=== PATIENT | female | born 1965 | race Caucasian/White ===

== ENCOUNTER 2017-05-07 06:33 | Emergency (ER) | payer MEDICARE, MEDICAID ==
[2017-05-07 06:43] VITALS: BP 125/70
--- NOTE | 2017-05-07 07:02 | EDM.PDOC ---
ED HPI GENERAL MEDICAL PROBLEM - General Chief Complaint: General Stated Complaint: Fall with pain pain to neck/back Time Seen by Provider: 05/07/17 06:35 Source of Information: Reports: Patient, EMS, Jail Records History Limitations: Reports: No Limitations - History of Present Illness INITIAL COMMENTS - FREE TEXT/NARRATIVE: 51 YO WF presents to ER by EMS from [place] after fall this am. Pt states she has poor eyesight and was walking back from the bathroom and fell. Pt unsure if she tripped/slipped and unsure if she lost consciousness. Pt complaining of posterior head pain and neck pain as well as low back pain. Pt currently in NAd and alert and oriented x 3. Pt denies any recent illness, denies chest pain or shortness of breath. Onset: Today Duration: Hour(s): (1) Location: Reports: Head, Neck, Back Quality: Reports: Ache Severity: Mild Improves with: Reports: None Worsens with: Reports: None Associated Symptoms: Reports: No Other Symptoms. Denies: Chest Pain, Cough, Diaphoresis, Nausea/Vomiting, Seizure, Shortness of Breath - Related Data Allergies Allergy/AdvReac Type Severity Reaction Status Date / Time carbamazepine [From Tegretol] Allergy Cannot Verified 05/07/17 07:01 Remember penicillin Allergy Rash Verified 05/07/17 07:01 Home Meds: Home Meds Acetaminophen 650 mg PO Q6H PRN 09/24/14 [History] Aspirin [Halfprin] 81 mg PO BRK 09/24/14 [History] Cholecalciferol (Vitamin D3) [Vitamin D] 2,000 unit PO DAILY 09/24/14 [History] Omeprazole [Omeprazole] 20 mg PO ACBREAKFAST 09/24/14 [History] cloZAPine [Clozapine] 500 mg PO BEDTIME 09/24/14 [History] clonazePAM [Clonazepam] 1 mg PO DAILY 09/24/14 [History] Albuterol/Ipratropium [DuoNeb 3.0-0.5 MG/3 ML] 3 ml INH Q6H PRN 05/07/17 [ History] Benztropine [Cogentin] 1 mg PO BID 05/07/17 [History] Bisacodyl [Biscolax] 1 supp RECTAL DAILY PRN 05/07/17 [History] ClonazePAM [KlonoPIN] 2 mg PO BEDTIME 05/07/17 [History] Divalproex Sodium [Depakote Sprinkle] 1,500 mg PO BEDTIME 05/07/17 [History] Iron Polysaccharides Complex [Ferrex 150] 150 cap PO DAILY 05/07/17 [History] Lurasidone HCl [Latuda] 120 mg PO BEDTIME 05/07/17 [History] Magnesium Hydroxide [Milk of Magnesia] 30 ml PO DAILY PRN 05/07/17 [History] Magnesium Oxide [Magnesium] 400 mg PO DAILY@1200 05/07/17 [History] Non-Formulary Medication [NF Drug] 1 cap PO DAILY 05/07/17 [History] Polyethylene Glycol 3350 [MiraLAX] 1 pkt PO ASDIRECTED 05/07/17 [History] Prazosin [Minpress] 2 mg PO BEDTIME 05/07/17 [History] Sennosides [Senna] 8.6 mg PO DAILY 05/07/17 [History] cloZAPine 250 mg PO DAILY 05/07/17 [History] traMADol [Ultram] 50 mg PO Q6H PRN #15 tab 05/07/17 [Rx] Past Medical History Other Genitourinary History: renal failure Other OB/BYN History: Ca in situ - ovarian - Past Surgical History Other Musculoskeletal Surgeries/Procedures:: knee repl bilat. fx ankle Social & Family History - Tobacco Use Smoking Status *Q: Former Smoker Second Hand Smoke Exposure: No - Recreational Drug Use Recreational Drug Use: No ED ROS GENERAL - Review of Systems Review Of Systems: See Below Constitutional: Reports: No Symptoms HEENT: Reports: No Symptoms Respiratory: Reports: No Symptoms Cardiovascular: Reports: No Symptoms Endocrine: Reports: No Symptoms GI/Abdominal: Reports: No Symptoms : Reports: No Symptoms Musculoskeletal: Reports: Neck Pain, Back Pain Skin: Reports: No Symptoms Neurological: Reports: Headache Psychiatric: Reports: No Symptoms Hematologic/Lymphatic: Reports: No Symptoms Immunologic: Reports: No Symptoms ED EXAM, GENERAL - Physical Exam Exam: See Below Exam Limited By: No Limitations General Appearance: Alert, WD/WN, No Apparent Distress Eye Exam: Bilateral Eye: EOMI, PERRL Ears: Normal External Exam, Normal Canal, Hearing Grossly Normal, Normal TMs Head: Atraumatic, Normocephalic Neck: Supple, Tender Lateral Respiratory/Chest: No Respiratory Distress, Lungs Clear, Normal Breath Sounds, No Accessory Muscle Use, Chest Non-Tender Cardiovascular: Normal Peripheral Pulses, Regular Rate, Rhythm, No Edema, No Gallop, No JVD, No Murmur, No Rub GI/Abdominal: Normal Bowel Sounds, Soft, Non-Tender, No Organomegaly, No Distention, No Abnormal Bruit, No Mass Back Exam: Paraspinal Tenderness Extremities: Normal Inspection, Normal Range of Motion, Non-Tender, Normal Capillary Refill, No Pedal Edema Neurological: Alert, Oriented, CN II-XII Intact, Normal Cognition, Normal Gait, Normal Reflexes, No Motor/Sensory Deficits Psychiatric: Normal Affect, Normal Mood Skin Exam: Warm, Dry, Intact, Normal Color, No Rash Lymphatic: No Adenopathy EKG INTERPRETATION EKG Date: 05/07/17 Time: 07:06 Rhythm: NSR Rate (Beats/Min): 83 [place]: Normal P-Wave: Present QRS: Normal ST-T: Normal QT: Normal Comparison: NA - No Prior EKG Course - Vital Signs Last Recorded V/S: Last Vital Signs Temp 35.8 C 05/07/17 06:41 Pulse 87 05/07/17 06:41 Resp 18 05/07/17 06:41 BP 125/70 05/07/17 06:41 Pulse Ox 99 05/07/17 06:41 - Orders/Labs/Meds Orders: Active Orders 24 hr Category Date Time Status EKG Documentation Completion [RC] ASDIRECTED Care 05/07/17 06:48 Active Abdomen Pelvis wo Cont [CT] Stat Exams 05/07/17 08:44 Taken Cervical Spine wo Cont [CT] Stat Exams 05/07/17 06:47 Taken Chest 1V Frontal [CR] Stat Exams 05/07/17 06:47 Taken Head wo Cont [CT] Stat Exams 05/07/17 06:47 Taken Lumbar Spine 2 or 3V [CR] Stat Exams 05/07/17 06:47 Taken EKG 12 Lead [EK] Routine Ther 05/07/17 06:47 Ordered Labs: Laboratory Tests 05/07/17 05/07/17 05/07/17 Range/Units 07:00 07:00 07:52 WBC 6.1 (5.0-10.0) 10^3/uL RBC 4.41 (3.80-5.50) 10^6/uL Hgb 14.1 (12.0-16.0) g/dL Hct 43.4 (37.0-47.0) % MCV 98.5 H (82.0-92.0) fL MCH 32.0 H (27.0-31.0) pg MCHC 32.5 (32.0-36.0) g/dL RDW 14.4 (11.5-14.5) % Plt Count 186 (150-300) 10^3/uL MPV 9.4 (7.4-10.4) fL Neut % (Auto) 61.8 (50.0-70.0) % Lymph % (Auto) 21.7 (20.0-40.0) % Esmeralda % (Auto) 12.3 H (2.0-8.0) % Eos % (Auto) 2.3 (1.0-3.0) % Baso % (Auto) 1.9 H (0.0-1.0) % Neut # (Auto) 3.8 (2.5-7.0) 10^3/uL Lymph # (Auto) 1.3 (1.0-4.0) 10^3/uL Esmeralda # (Auto) 0.8 (0.1-0.8) 10^3/uL Eos # (Auto) 0.1 (0.1-0.3) 10^3/uL Baso # (Auto) 0.1 (0.0-0.1) 10^3/uL Sodium 149 H (136-145) mmol/L Potassium 4.2 (3.3-5.3) mmol/L Chloride 111 (98-115) mmol/L Carbon Dioxide 28.8 (21.0-32.0) mmol/L BUN 14 (6-25) mg/dL Creatinine 0.93 (0.51-1.17) mg/dL Est Cr Clr Drug Dosing 78.19 mL/min Estimated GFR (MDRD) > 60 mL/min Glucose 100 (70-110) mg/dL Calcium 9.0 (8.7-10.3) mg/dL Total Bilirubin 0.3 (0.2-1.0) mg/dL AST 19 (15-37) U/L ALT 18 (12-78) U/L Alkaline Phosphatase 91 (46-116) IU/L Creatine Kinase 47 (26-276) U/L CK-MB (CK-2) < 0.50 (0.00-4.30) ng/mL Troponin I < 0.04 (0.00-0.070) ng/mL Total Protein 6.9 (6.4-8.2) g/dL Albumin 2.82 L (3.00-4.80) g/dL Specimen Type Urincath Urine Color Yellow (YELLOW) Urine Appearance Slightly cloudy H (CLEAR) Urine pH >= 9.0 (5.0-9.0) Ur Specific Newell 1.015 (1.005-1.030) Urine Protein Negative (NEGATIVE) mg/dL Urine Glucose (UA) Negative (NEGATIVE) mg/dL Urine Ketones Trace H (NEGATIVE) mg/dL Urine Occult Blood Moderate H (NEGATIVE) Urine Nitrite Negative (NEGATIVE) Urine Bilirubin Negative (NEGATIVE) Urine Urobilinogen 0.2 (0.2-1.0) E.U./dL Ur Leukocyte Esterase Trace H (NEGATIVE) Urine RBC Not Reportable Urine WBC Not Reportable Urinalysis Comment See note Meds: Medications Discontinued Medications Generic Name Dose Route Start Last Admin Trade Name Freq PRN Reason Stop Dose Admin Morphine Sulfate 2 mg 05/07/17 08:44 05/07/17 08:49 Morphine IVPUSH 05/07/17 08:45 2 mg ONETIME ONE Administration - Radiology Interpretation Free Text/Narrative:: CT cervical- NAd CT Head- NAD CXR- NAD CT abd/pelvis- Possible Paget's Dz Departure - Departure Time of Disposition: 10:15 Disposition: DC/Tfer to SNF 03 Condition: Fair Clinical Impression: Head contusion Qualifiers: Encounter type: initial encounter Contusion of head detail: other part of head Qualified Code(s): S00.83XA - Contusion of other part of head, initial encounter Cervical strain, acute Qualifiers: Encounter type: initial encounter Qualified Code(s): S16.1XXA - Strain of muscle, fascia and tendon at neck level, initial encounter Lumbar strain Qualifiers: Encounter type: initial encounter Qualified Code(s): S39.012A - Strain of muscle, fascia and tendon of lower back, initial encounter - Discharge Information Prescriptions: traMADol [Ultram] 50 mg PO Q6H PRN #15 tab PRN Reason: Pain Instructions: Contusion, Back Pain, Adult, Cervical Sprain, [id number] Referrals: Natividad Granados MD [Primary Care Provider] - Forms: ED Department Discharge Additional Instructions: 1. discharge to alf 2. ultram 50mg PO Q6 PRN for pain 3. consider PT eval and treat 4. follow up with PCP for further evaluation and treatment 5. return to ER for worsening symptoms - My Orders Last 24 Hours: My Active Orders 05/07/17 06:47 Cervical Spine wo Cont [CT] Stat Chest 1V Frontal [CR] Stat Head wo Cont [CT] Stat Lumbar Spine 2 or 3V [CR] Stat EKG 12 Lead [EK] Routine 05/07/17 06:48 EKG Documentation Completion [RC] ASDIRECTED 05/07/17 08:44 Abdomen Pelvis wo Cont [CT] Stat - Assessment/Plan Last 24 Hours: My Active Orders 05/07/17 06:47 Cervical Spine wo Cont [CT] Stat Chest 1V Frontal [CR] Stat Head wo Cont [CT] Stat Lumbar Spine 2 or 3V [CR] Stat EKG 12 Lead [EK] Routine 05/07/17 06:48 EKG Documentation Completion [RC] ASDIRECTED 05/07/17 08:44 Abdomen Pelvis wo Cont [CT] Stat Assessment:: 1. Fall 2. cervical strain 3. head contusion 4. low back pain Plan: 1. discharge to alf 2. ultram 50mg PO Q6 PRN for pain 3. consider PT eval and treat 4. follow up with PCP for further evaluation and treatment 5. return to ER for worsening symptoms
[2017-05-07 07:41] LABS: CHLORIDE,CL 111 mmol/L (98-115); SODIUM,NA 149 mmol/L (136-145)
[2017-05-07] MEDS ORDERED: Morphine 2 MG/ML Syringe IVPUSH ONE (08:44)
== END 2017-05-07 12:40 ==
LOC: KA.ED 06:33
DX: S16.1XXA Strain of muscle, fascia and tendon at neck level, initial encounter (principal); S39.012A Strain of muscle, fascia and tendon of lower back, initial encounter; S00.83XA Contusion of other part of head, initial encounter; Z88.0 Allergy status to penicillin; Z88.8 Allergy status to other drugs, medicaments and biological substances; Z79.899 Other long term (current) drug therapy; Z87.891 Personal history of nicotine dependence; W19.XXXA Unspecified fall, initial encounter; Y92.121 Bathroom in nursing home as the place of occurrence of the external cause
CPT/HCPCS: 70450; 71045; 72100; 72125; 74176; 80053; 81001; 82550; 82553; 84484; 85025; 93005; 96374; 99284; 99285; J2270

== ENCOUNTER 2018-04-12 21:03 | Emergency (ER) | payer MEDICARE, MEDICAID ==
--- NOTE | 2018-04-12 21:34 | EDM.PDOC ---
ED HPI GENERAL MEDICAL PROBLEM - General Chief Complaint: Back Pain or Injury Stated Complaint: FELL Time Seen by Provider: 04/12/18 21:18 Source of Information: Reports: Patient, EMS, EMS Notes Reviewed History Limitations: Reports: No Limitations - History of Present Illness INITIAL COMMENTS - FREE TEXT/NARRATIVE: Patient is a 52-year-old female who presents via EMS to the emergency department with a complaint of low back pain. Patient states that she was trying to back into bed and accidentally sat down before she was on the edge of the bed. She landed on her buttocks on the floor. Patient is developmentally challenged however, consistent with her story. Same scenario depicted by EMS medic. Patient denies shortness of breath, chest pain, headache, head injury, bladder or bowel incontinence, or inability to use lower extremities. Onset: Today Duration: Minutes: Location: Reports: Back Quality: Reports: Ache Severity: Mild Improves with: Reports: None Worsens with: Reports: None Context: Reports: Trauma Associated Symptoms: Reports: No Other Symptoms - Related Data Allergies Allergy/AdvReac Type Severity Reaction Status Date / Time carbamazepine [From Tegretol] Allergy Cannot Verified 05/07/17 07:01 Remember penicillin Allergy Rash Verified 05/07/17 07:01 Home Meds: Home Meds Acetaminophen 650 mg PO Q6H PRN 09/24/14 [History] Aspirin [Halfprin] 81 mg PO BRK 09/24/14 [History] Cholecalciferol (Vitamin D3) [Vitamin D] 2,000 unit PO DAILY 09/24/14 [History] Omeprazole 20 mg PO ACBREAKFAST 09/24/14 [History] cloZAPine [Clozapine] 500 mg PO BEDTIME 09/24/14 [History] clonazePAM [Clonazepam] 1 mg PO DAILY 09/24/14 [History] Albuterol/Ipratropium [DuoNeb 3.0-0.5 MG/3 ML] 3 ml INH Q6H PRN 05/07/17 [ History] Benztropine [Cogentin] 1 mg PO BID 05/07/17 [History] Bisacodyl [Biscolax] 1 supp RECTAL DAILY PRN 05/07/17 [History] ClonazePAM [KlonoPIN] 2 mg PO BEDTIME 05/07/17 [History] Divalproex Sodium [Depakote Sprinkle] 1,500 mg PO BEDTIME 05/07/17 [History] Iron Polysaccharides Complex [Ferrex 150] 150 cap PO DAILY 05/07/17 [History] Lurasidone HCl [Latuda] 120 mg PO BEDTIME 05/07/17 [History] Magnesium Hydroxide [Milk of Magnesia] 30 ml PO DAILY PRN 05/07/17 [History] Magnesium Oxide [Magnesium] 400 mg PO DAILY@1200 05/07/17 [History] Non-Formulary Medication [NF Drug] 1 cap PO DAILY 05/07/17 [History] Polyethylene Glycol 3350 [MiraLAX] 1 pkt PO ASDIRECTED 05/07/17 [History] Prazosin [Minpress] 2 mg PO BEDTIME 05/07/17 [History] Sennosides [Senna] 8.6 mg PO DAILY 05/07/17 [History] cloZAPine 250 mg PO DAILY 05/07/17 [History] traMADol [Ultram] 50 mg PO Q6H PRN #15 tab 05/07/17 [Rx] Past Medical History Other Genitourinary History: renal failure 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 fx ankle ED ROS GENERAL - Review of Systems Review Of Systems: ROS reveals no pertinent complaints other than HPI. Constitutional: Reports: No Symptoms HEENT: Reports: No Symptoms Respiratory: Reports: No Symptoms Cardiovascular: Reports: No Symptoms Endocrine: Reports: No Symptoms GI/Abdominal: Reports: No Symptoms : Reports: No Symptoms Musculoskeletal: Reports: Back Pain Skin: Reports: No Symptoms Neurological: Reports: No Symptoms Psychiatric: Reports: No Symptoms Hematologic/Lymphatic: Reports: No Symptoms Immunologic: Reports: No Symptoms ED EXAM,LOWER BACK PAIN/INJURY - Physical Exam Exam: See Below Exam Limited By: No Limitations General Appearance: Alert, WD/WN, No Apparent Distress Throat/Mouth: Normal Inspection, Normal Oropharynx, No Airway Compromise Head: Atraumatic, Normocephalic Neck: Normal Inspection, Supple, Non-Tender, Full Range of Motion Respiratory/Chest: No Respiratory Distress, Lungs Clear, Normal Breath Sounds, No Accessory Muscle Use, Chest Non-Tender Cardiovascular: Regular Rate, Rhythm, No Murmur GI/Abdominal: Normal Bowel Sounds, Soft, Non-Tender, Pelvis Stable (No tenderness on palpation) Back Exam: Normal Inspection, Full Range of Motion, Other (No pain on palpation , no ecchymosis, no step off.). No: CVA Tenderness (L), CVA Tenderness (R), Decreased Range of Motion, Paraspinal Tenderness, Vertebral Tenderness Extremities: Normal Inspection, Normal Range of Motion, Non-Tender, No Pedal Edema Neurological: Alert, Normal Mood/Affect, Normal Dorsiflexion, Straight Leg Raise (L), Straight Leg Raise (R). No: Saddle Anesthesia Psychiatric: Normal Affect, Normal Mood Skin Exam: Warm, Dry, Intact, Normal Color, No Rash Course - Orders/Labs/Meds Orders: Active Orders 24 hr Category Date Time Status Lumbar Spine 2 or 3V [CR] Stat Exams 04/12/18 21:19 Ordered - Radiology Interpretation Free Text/Narrative:: Lumbar sacral x-ray shows degenerative changes but no acute fracture - Re-Assessments/Exams Free Text/Narrative Re-Assessment/Exam: 04/12/18 22:06 Patient afebrile, nontoxic appearing, vital signs stable, denies any discomfort. Patient will be returned to facility and have follow-up with PCP Departure - Departure Time of Disposition: 22:08 Disposition: DC/Tfer to Medicaid N[facility] Fac 64 Condition: Good Clinical Impression: Fall in elderly patient Back pain Qualifiers: Back pain location: low back pain Chronicity: acute Back pain laterality: unspecified Sciatica presence: without sciatica Qualified Code(s): M54.5 - Low back pain - Discharge Information Instructions: Fall Prevention in the Home, [id number], Back Pain, Adult, Easy -to-Read, Muscle Strain, [id number] Referrals: Natividad Granados MD [Primary Care Provider] - Forms: ED Department Discharge Additional Instructions: Follow-up with PCP in next 2-3 days. Return to emergency department sooner if symptoms continue or worsen. - My Orders Last 24 Hours: My Active Orders 04/12/18 21:19 Lumbar Spine 2 or 3V [CR] Stat - Assessment/Plan Last 24 Hours: My Active Orders 04/12/18 21:19 Lumbar Spine 2 or 3V [CR] Stat Assessment:: Fall, low back pain Plan: Follow-up with PCP
[2018-04-12 22:33] VITALS: BP 117/70
--- NOTE | 2018-04-13 08:09 | CR ---
[id number] RAD/RAD Lumbar Spine 2-3V EXAM: LUMBAR SPINE 3 VIEWS INDICATION: Fall. COMPARISON: May 07, 2017. DISCUSSION: Grade 1 L5-S1 spondylolisthesis and mild convex right lumbar spine curvature have not changed. There is mild to moderate degenerative disc disease throughout the lumbar spine and bilateral lower lumbar facet degeneration. A hemangioma is suggested in the L1 vertebral body and a stable bone island is suggested in the left iliac bone. No acute fracture is identified. Multiple surgical clips overlie the lower lumbar spine. IMPRESSION: 1. No acute findings. 2. Unchanged grade 1 L5-S1 spondylolisthesis relating to bilateral pars defects. 3. Unchanged moderate lumbar spondylosis. Idris Ramos MD 04/13/18 0808 Thank you for allowing us to participate in the care of your patient.
== END 2018-04-12 23:35 ==
LOC: KA.ED 21:03
DX: M54.5 Low back pain (principal); Z88.1 Allergy status to other antibiotic agents; Z88.8 Allergy status to other drugs, medicaments and biological substances; Z79.82 Long term (current) use of aspirin; Z79.899 Other long term (current) drug therapy; W19.XXXA Unspecified fall, initial encounter
CPT/HCPCS: 72100; 99283; 99284

== ENCOUNTER 2022-05-27 08:10 | Day surgery (SDC) | payer MEDICARE, OTHER, MEDICAID ==
[~2022-05-27 08:10] MED LIST: Sodium Chloride 0.9% 1,000 ML IV SCH; Sodium Chloride 0.9% 10 ML Syringe FLUSH PRN
[2022-05-27] MEDS ORDERED: Propofol 200 MG/20 ML SDV ONE (08:48)
[2022-05-27] MEDS ORDERED: Midazolam 1 MG/ML 2 ML SDV ONE (08:48)
[2022-05-27] MEDS ORDERED: Iopamidol 755 Mg/ML 75 ML Bottle IVPUSH ONE (11:19)
[2022-05-27 11:23] VITALS: BP 147/78; PULSE 70
[2022-05-27] MEDS ORDERED: Sodium Chloride 0.9% 50 ML IV SCH (11:30)
== END 2022-05-27 13:09 | disposition home or self-care (01) ==
LOC: KA.SDS 08:10
PROVIDERS: ATTEND Family Medicine
DX: R19.7 Diarrhea, unspecified (principal); R63.4 Abnormal weight loss; Z53.09 Procedure and treatment not carried out because of other contraindication; E11.9 Type 2 diabetes mellitus without complications; E78.5 Hyperlipidemia, unspecified; I10 Essential (primary) hypertension; F43.10 Post-traumatic stress disorder, unspecified; F60.3 Borderline personality disorder; F25.9 Schizoaffective disorder, unspecified; F41.9 Anxiety disorder, unspecified; M19.90 Unspecified osteoarthritis, unspecified site; K21.00 Gastro-esophageal reflux disease with esophagitis, without bleeding; G43.909 Migraine, unspecified, not intractable, without status migrainosus; Z79.899 Other long term (current) drug therapy; Z88.0 Allergy status to penicillin; Z88.8 Allergy status to other drugs, medicaments and biological substances; Z87.891 Personal history of nicotine dependence
CPT/HCPCS: 00811; 74177; 82947; J2250; J2704; J7030; Q9967